=== PATIENT | female | born 1955 | race Two or more races ===

== ENCOUNTER 2020-03-19 19:00 | Inpatient (IN) | payer MEDICARE, OTHER ==
[~2020-03-19] VITALS: Ht 165.1 cm; Wt 147.6 kg
[2020-03-19] MEDS ORDERED: SIMV10TA97 PO (19:21)
[2020-03-19] MEDS ORDERED: HYDR-4174 PO (19:21)
[2020-03-19] MEDS ORDERED: METO50 PO (19:21)
[2020-03-19] MEDS ORDERED: AMLO10TA55 PO (19:21)
[2020-03-19 19:45] LABS: BASOPHILS % (AUTO) 0.7 % (0.0-2.0); HEMATOCRIT 44.8 % (36-46); HEMOGLOBIN 14.4 g/dL (12.0-16.0); LYMPHOCYTES # (AUTO) 2.1 K/uL (1.0-4.8); LYMPHOCYTES % (AUTO) 25.3 % (22.0-44.0); MEAN CORPUSCULAR HEMOGLOBIN 28.2 pg (26.0-34.0); MEAN CORPUSCULAR HGB CONC 32.2 G/dL (31.0-37.0); MEAN CORPUSCULAR VOLUME 88 fL (80-100); MONOCYTES # (AUTO) 0.8 K/uL (0.1-1.0); NEUTROPHILS # (AUTO) 5.2 K/uL (1.8-7.7); PLATELET COUNT (AUTO) 347 K/uL (150-450); RED BLOOD CELL COUNT(AUTO) 5.11 MIL/uL (4.00-5.20); RED CELL DISTRIBUTION WIDTH 14.7 % (11.5-14.5)
[2020-03-19 19:51] LABS: ANION GAP 4 mmol/L (8-16); CALCIUM, TOTAL 8.6 mg/dL (8.8-10.5); CARBON DIOXIDE 34 mmol/L (22-29); CHLORIDE 102 mmol/L (98-107); CREATININE 0.98 mg/dL (0.60-1.30); GLOMERULAR FILTR. RATE CALC 57 mL/min (>60); GLUCOSE,RANDOM 170 mg/dL (70-110); SODIUM SERUM 140 mmol/L (136-145); UREA NITROGEN, BLOOD 14 mg/dL (7-18)
[2020-03-19 19:54] LABS: D-DIMER 1.08 mg/L FEU (0.00-0.50); PROTHROMBIN TIME 10.2 SEC (9.4-11.6)
[2020-03-19 19:59] LABS: LACTIC ACID 1.4 mmol/L (0.4-2.0)
[2020-03-19 20:10] LABS: ALANINE AMINOTRANSFERASE 20 U/L (12-78); ALBUMIN 3.4 g/dL (3.4-5.0); ALKALINE PHOSPHATASE 99 U/L (46-116); ASPARTATE AMINOTRANSFERASE 14 U/L (15-37); BILIRUBIN,TOTAL 0.3 mg/dL (0.1-1.0); CREATINE KINASE, TOTAL ONLY 37 U/L (26-192); FERRITIN 105 ng/mL (8-252); LACTATE DEHYDROGENASE 147 U/L (81-234); PHOSPHORUS 3.4 mg/dL (2.5-4.9); TOTAL PROTEIN, SERUM 7.8 g/dL (6.4-8.2)
[2020-03-19] MEDS ORDERED: MethylPREDNISolone SOD SUCC 125 MG/2 ML VIAL IVP ONE (20:30)
[2020-03-19] MEDS ORDERED: ACETAMINOPHEN 325 MG TABLET PO PRN ×2 (21:15→22:00)
[2020-03-19] MEDS ORDERED: ONDANSETRON HCL 4 MG/2 ML VIAL IVP PRN ×2 (21:15→22:00)
[2020-03-19 21:27] LABS: ERYTHROCYTE SEDIMENTATION RATE 36 MM/HR (0-20)
[2020-03-19] MEDS ORDERED: MORPHINE SULFATE 2 MG/ML SYRINGE IVP PRN (22:00)
[2020-03-19] MEDS ORDERED: BISACODYL 10 MG RECTAL RECTAL SUPPOSITORY PR PRN (22:00)
[2020-03-19] MEDS ORDERED: IPRATROPIUM BROMIDE HFA 17 MCG/PUFF 12.9 GM INHALER IH PRN (22:00)
[2020-03-19] MEDS ORDERED: MAGNESIUM HYDROXIDE SUSPENSION 30 ML UDCUP PO PRN (22:00)
[2020-03-19] MEDS ORDERED: HYDROCODONE/ACETAMINOPHEN 5-325 MG TABLET PO PRN (22:00)
[2020-03-19] MEDS ORDERED: ALBUTEROL SULFATE HFA 90 MCG/PUFF 8 GM INHALER IH PRN (22:00)
[2020-03-19] MEDS ORDERED: ALBUTEROL SULFATE 2.5 MG/0.5 ML NEB SOLUTION NEB SCH (23:00)
[2020-03-19] MEDS ORDERED: IPRATROPIUM BROMIDE 0.5 MG/2.5 ML NEB SOLUTION NEB SCH (23:00)
[2020-03-19] MEDS ORDERED: SODIUM CHLORIDE 0.9% 250 ML IV ONE (23:26)
[2020-03-19 23:29] VITALS: BP 142/74
[2020-03-19] MEDS: HEPARIN SODIUM,PORCINE 5,000 UNITS/ML VIAL SQ SCH (23:48)
[2020-03-19] MEDS: MethylPREDNISolone SOD SUCC 125 MG/2 ML VIAL IVP SCH (23:49)
[2020-03-19] MEDS: AZITHROMYCIN 500 MG/NS 250 ML IV SCH (23:49)
[2020-03-20] MEDS: CefTRIAXone 1 GM/DEXTROSE 50 ML IV SCH (01:47)
[2020-03-20] MEDS: IPRATROPIUM BROMIDE HFA 17 MCG/PUFF 12.9 GM INHALER IH SCH ×5 (02:00→19:49)
[2020-03-20] MEDS: ALBUTEROL SULFATE HFA 90 MCG/PUFF 8 GM INHALER IH SCH ×5 (02:00→19:49)
[2020-03-20 04:57] VITALS: BP 136/74
[2020-03-20] MEDS: MethylPREDNISolone SOD SUCC 125 MG/2 ML VIAL IVP SCH (06:24)
[2020-03-20 07:00] LABS: D-DIMER 1.08 mg/L FEU (0.00-0.50)
[2020-03-20 07:31] LABS: C-REACTIVE PROTEIN QUANT 0.54 mg/dL (0.00-0.30)
[2020-03-20 08:15] VITALS: BP 127/67
[2020-03-20] MEDS: BENZONATATE 100 MG CAPSULE PO SCH ×3 (08:45→20:48)
[2020-03-20] MEDS: HEPARIN SODIUM,PORCINE 5,000 UNITS/ML VIAL SQ SCH (08:46)
[2020-03-20] MEDS: PANTOPRAZOLE SODIUM 40 MG DR TABLET PO SCH (08:46)
[2020-03-20] MEDS: DOCUSATE SODIUM 100 MG CAPSULE PO SCH ×2 (08:46→20:47)
[2020-03-20] MEDS: HydrALAZINE HCL 50 MG TABLET PO SCH ×2 (08:46→21:00)
[2020-03-20] MEDS: METOPROLOL TARTRATE 50 MG TABLET PO SCH ×2 (08:46→21:00)
[2020-03-20] MEDS: GuaiFENesin SR 600 MG ER TABLET PO SCH ×2 (08:46→20:48)
[2020-03-20] MEDS: BUDESONIDE 180 MCG/INH INHALER [120] IH SCH ×2 (08:52→20:51)
[2020-03-20] MEDS ORDERED: HEPARIN SODIUM,PORCINE 5,000 UNITS/ML VIAL IVP PRN ×2 (09:45)
[2020-03-20 10:09] LABS: BASOPHILS % (AUTO) 0.3 % (0.0-2.0); EOSINOPHILS % (AUTO) 0 % (1.0-6.0); HEMATOCRIT 42.1 % (36-46); HEMOGLOBIN 13.6 g/dL (12.0-16.0); LYMPHOCYTES # (AUTO) 0.6 K/uL (1.0-4.8); LYMPHOCYTES % (AUTO) 7.5 % (22.0-44.0); MEAN CORPUSCULAR HEMOGLOBIN 28.6 pg (26.0-34.0); MEAN CORPUSCULAR HGB CONC 32.2 G/dL (31.0-37.0); MEAN CORPUSCULAR VOLUME 89 fL (80-100); MONOCYTES % (AUTO) 0.5 % (2.0-9.0); PLATELET COUNT (AUTO) 316 K/uL (150-450); RED BLOOD CELL COUNT(AUTO) 4.74 MIL/uL (4.00-5.20); RED CELL DISTRIBUTION WIDTH 14.5 % (11.5-14.5)
[2020-03-20 10:11] LABS: NEUTROPHILS % (AUTO) 91.7 % (40.0-70.0)
[2020-03-20 10:22] LABS: PROTHROMBIN TIME 10.5 SEC (9.4-11.6)
[2020-03-20] MEDS: HEPARIN SODIUM 25000 UNITS/D5W 250 ML IV PRN (11:40)
[2020-03-20 16:30] VITALS: BP 122/66
[2020-03-20 20:06] VITALS: BP 119/66
[2020-03-20] MEDS: SIMVASTATIN 10 MG TABLET PO SCH (20:48)
[2020-03-20] MEDS: AmLODIPine BESYLATE 10 MG TABLET PO SCH (20:49)
[2020-03-20 23:01] VITALS: BP 126/66
[2020-03-20] MEDS: ZOLPIDEM TARTRATE 5 MG TABLET PO PRN (23:06)
[2020-03-20] MEDS: AZITHROMYCIN 500 MG/NS 250 ML IV SCH (23:52)
[2020-03-21] MEDS: CefTRIAXone 1 GM/DEXTROSE 50 ML IV SCH (01:13)
[2020-03-21] MEDS: IPRATROPIUM BROMIDE HFA 17 MCG/PUFF 12.9 GM INHALER IH SCH ×4 (02:00→20:51)
[2020-03-21] MEDS: ALBUTEROL SULFATE HFA 90 MCG/PUFF 8 GM INHALER IH SCH ×4 (02:00→20:50)
[2020-03-21] MEDS: HEPARIN SODIUM 25000 UNITS/D5W 250 ML IV PRN (05:06)
[2020-03-21 05:38] VITALS: BP 112/59
[2020-03-21 08:02] LABS: BASOPHILS % (AUTO) 0.3 % (0.0-2.0); EOSINOPHILS % (AUTO) 0 % (1.0-6.0); HEMATOCRIT 39.4 % (36-46); HEMOGLOBIN 12.9 g/dL (12.0-16.0); LYMPHOCYTES # (AUTO) 1.1 K/uL (1.0-4.8); LYMPHOCYTES % (AUTO) 7.9 % (22.0-44.0); MEAN CORPUSCULAR HEMOGLOBIN 28.9 pg (26.0-34.0); MEAN CORPUSCULAR HGB CONC 32.8 G/dL (31.0-37.0); MEAN CORPUSCULAR VOLUME 88 fL (80-100); MONOCYTES % (AUTO) 7.2 % (2.0-9.0); NEUTROPHILS # (AUTO) 11.6 K/uL (1.8-7.7); NEUTROPHILS % (AUTO) 84.6 % (40.0-70.0); PLATELET COUNT (AUTO) 327 K/uL (150-450); RED BLOOD CELL COUNT(AUTO) 4.47 MIL/uL (4.00-5.20); RED CELL DISTRIBUTION WIDTH 14.7 % (11.5-14.5)
[2020-03-21 08:05] VITALS: BP 127/66
[2020-03-21 08:23] LABS: D-DIMER 0.66 mg/L FEU (0.00-0.50)
[2020-03-21] MEDS: PANTOPRAZOLE SODIUM 40 MG DR TABLET PO SCH (08:26)
[2020-03-21] MEDS: BENZONATATE 100 MG CAPSULE PO SCH ×3 (08:26→20:51)
[2020-03-21] MEDS: DOCUSATE SODIUM 100 MG CAPSULE PO SCH ×2 (08:26→20:51)
[2020-03-21] MEDS: GuaiFENesin SR 600 MG ER TABLET PO SCH ×2 (08:26→20:51)
[2020-03-21] MEDS: METOPROLOL TARTRATE 50 MG TABLET PO SCH ×2 (08:26→21:00)
[2020-03-21] MEDS: HydrALAZINE HCL 50 MG TABLET PO SCH ×2 (08:26→21:00)
[2020-03-21] MEDS: DEXAMETHASONE SOD PHOS 4 MG/ML VIAL IVP SCH (08:28)
[2020-03-21] MEDS: BUDESONIDE 180 MCG/INH INHALER [120] IH SCH (08:30)
[2020-03-21 08:31] LABS: C-REACTIVE PROTEIN QUANT 0.26 mg/dL (0.00-0.30)
[2020-03-21 11:11] VITALS: BP 144/52
[2020-03-21 15:29] VITALS: BP 127/58
[2020-03-21 20:05] VITALS: BP 116/57
[2020-03-21] MEDS: SIMVASTATIN 10 MG TABLET PO SCH (20:51)
[2020-03-21] MEDS: AmLODIPine BESYLATE 10 MG TABLET PO SCH (20:51)
[2020-03-21] MEDS: ZOLPIDEM TARTRATE 5 MG TABLET PO PRN (22:27)
[2020-03-21] MEDS: AZITHROMYCIN 500 MG/NS 250 ML IV SCH (23:26)
[2020-03-22] VITALS (7 sets, daily range): BP systolic 107–139; BP diastolic 53–76
[2020-03-22] MEDS: HEPARIN SODIUM 25000 UNITS/D5W 250 ML IV PRN (00:18)
[2020-03-22] MEDS: CefTRIAXone 1 GM/DEXTROSE 50 ML IV SCH ×2 (02:33→23:21)
[2020-03-22 06:45] LABS: D-DIMER 0.37 mg/L FEU (0.00-0.50)
[2020-03-22 07:05] LABS: C-REACTIVE PROTEIN QUANT 0.17 mg/dL (0.00-0.30)
[2020-03-22] MEDS: ALBUTEROL SULFATE HFA 90 MCG/PUFF 8 GM INHALER IH SCH ×3 (08:00→20:23)
[2020-03-22] MEDS: IPRATROPIUM BROMIDE HFA 17 MCG/PUFF 12.9 GM INHALER IH SCH ×3 (08:00→20:23)
[2020-03-22] MEDS: METOPROLOL TARTRATE 50 MG TABLET PO SCH (09:00)
[2020-03-22] MEDS: PANTOPRAZOLE SODIUM 40 MG DR TABLET PO SCH (09:00)
[2020-03-22] MEDS: BUDESONIDE 180 MCG/INH INHALER [120] IH SCH (09:00)
[2020-03-22] MEDS: BENZONATATE 100 MG CAPSULE PO SCH ×3 (09:01→20:22)
[2020-03-22] MEDS: GuaiFENesin SR 600 MG ER TABLET PO SCH ×2 (09:01→20:21)
[2020-03-22] MEDS: HydrALAZINE HCL 50 MG TABLET PO SCH ×2 (09:01→20:21)
[2020-03-22] MEDS: DOCUSATE SODIUM 100 MG CAPSULE PO SCH ×2 (09:01→20:21)
[2020-03-22] MEDS: DEXAMETHASONE SOD PHOS 4 MG/ML VIAL IVP SCH (09:01)
[2020-03-22] MEDS: HEPARIN SODIUM,PORCINE 5,000 UNITS/ML VIAL SQ SCH ×2 (17:04→23:27)
[2020-03-22] MEDS: SIMVASTATIN 10 MG TABLET PO SCH (20:21)
[2020-03-22] MEDS: METOPROLOL TARTRATE 25 MG TABLET PO SCH (20:21)
[2020-03-22] MEDS: AmLODIPine BESYLATE 10 MG TABLET PO SCH (20:21)
[2020-03-22] MEDS: ZOLPIDEM TARTRATE 5 MG TABLET PO PRN (22:23)
[2020-03-22] MEDS: AZITHROMYCIN 500 MG/NS 250 ML IV SCH (22:23)
[2020-03-23] MEDS: IPRATROPIUM BROMIDE HFA 17 MCG/PUFF 12.9 GM INHALER IH SCH ×4 (02:00→20:33)
[2020-03-23] MEDS: ALBUTEROL SULFATE HFA 90 MCG/PUFF 8 GM INHALER IH SCH ×4 (02:00→20:32)
[2020-03-23 05:14] VITALS: BP 109/51
[2020-03-23 06:54] LABS: C-REACTIVE PROTEIN QUANT 0.08 mg/dL (0.00-0.30)
[2020-03-23] MEDS: BUDESONIDE 180 MCG/INH INHALER [120] IH SCH ×2 (07:36→20:32)
[2020-03-23] MEDS: DEXAMETHASONE SOD PHOS 4 MG/ML VIAL IVP SCH (08:13)
[2020-03-23] MEDS: HEPARIN SODIUM,PORCINE 5,000 UNITS/ML VIAL SQ SCH ×3 (08:13→23:39)
[2020-03-23] MEDS: BENZONATATE 100 MG CAPSULE PO SCH ×3 (08:14→20:33)
[2020-03-23] MEDS: GuaiFENesin SR 600 MG ER TABLET PO SCH ×2 (08:14→20:34)
[2020-03-23] MEDS: PANTOPRAZOLE SODIUM 40 MG DR TABLET PO SCH (08:14)
[2020-03-23] MEDS: DOCUSATE SODIUM 100 MG CAPSULE PO SCH ×2 (08:14→20:36)
[2020-03-23] MEDS: METOPROLOL TARTRATE 25 MG TABLET PO SCH ×3 (08:25→20:36)
[2020-03-23] MEDS: HydrALAZINE HCL 50 MG TABLET PO SCH ×2 (08:25→20:34)
[2020-03-23 08:26] VITALS: BP 138/77
[2020-03-23 12:13] VITALS: BP 130/86
[2020-03-23 16:00] VITALS: BP 120/66
[2020-03-23] MEDS: ASCORBIC ACID 500 MG TABLET PO SCH (20:34)
[2020-03-23] MEDS: SIMVASTATIN 10 MG TABLET PO SCH (20:34)
[2020-03-23] MEDS: AmLODIPine BESYLATE 10 MG TABLET PO SCH (20:34)
[2020-03-23 20:57] VITALS: BP 132/68
[2020-03-23] MEDS: AZITHROMYCIN 500 MG/NS 250 ML IV SCH (23:38)
[2020-03-23] MEDS: ZOLPIDEM TARTRATE 5 MG TABLET PO PRN (23:38)
[2020-03-24] MEDS ORDERED: SODIUM CHLORIDE 0.9% 250 ML IV ONE (00:21)
[2020-03-24 00:23] VITALS: BP 153/67
[2020-03-24] MEDS: CefTRIAXone 1 GM/DEXTROSE 50 ML IV SCH (01:18)
[2020-03-24] MEDS: IPRATROPIUM BROMIDE HFA 17 MCG/PUFF 12.9 GM INHALER IH SCH ×4 (02:00→20:11)
[2020-03-24] MEDS: ALBUTEROL SULFATE HFA 90 MCG/PUFF 8 GM INHALER IH SCH ×4 (02:00→20:11)
[2020-03-24 04:05] VITALS: BP 120/70
[2020-03-24 07:29] LABS: FERRITIN 104 ng/mL (8-252); LACTATE DEHYDROGENASE 165 U/L (81-234)
[2020-03-24 07:31] LABS: C-REACTIVE PROTEIN QUANT < 0.05 mg/dL (0.00-0.30)
[2020-03-24 08:28] VITALS: BP 101/60
[2020-03-24] MEDS: BENZONATATE 100 MG CAPSULE PO SCH ×3 (08:29→20:12)
[2020-03-24] MEDS: DOCUSATE SODIUM 100 MG CAPSULE PO SCH ×2 (08:29→20:12)
[2020-03-24] MEDS: ZINC SULFATE 220 MG CAPSULE PO SCH (08:30)
[2020-03-24] MEDS: MULTIVITAMINS, THERAPEUTIC TABLET PO SCH (08:30)
[2020-03-24] MEDS: PANTOPRAZOLE SODIUM 40 MG DR TABLET PO SCH (08:30)
[2020-03-24] MEDS: ASCORBIC ACID 500 MG TABLET PO SCH ×2 (08:30→20:12)
[2020-03-24] MEDS: GuaiFENesin SR 600 MG ER TABLET PO SCH ×2 (08:31→20:12)
[2020-03-24] MEDS: DEXAMETHASONE SOD PHOS 4 MG/ML VIAL IVP SCH (08:32)
[2020-03-24] MEDS: METOPROLOL TARTRATE 25 MG TABLET PO SCH ×2 (08:32→20:12)
[2020-03-24] MEDS: HydrALAZINE HCL 50 MG TABLET PO SCH ×2 (08:32→20:12)
[2020-03-24] MEDS: HEPARIN SODIUM,PORCINE 5,000 UNITS/ML VIAL SQ SCH ×2 (08:33→16:59)
[2020-03-24] MEDS: BUDESONIDE 180 MCG/INH INHALER [120] IH SCH ×2 (08:38→20:11)
[2020-03-24] MEDS: MICONAZOLE NITRATE 2% 142 GM CREAM [BAZA] TP SCH (08:46)
[2020-03-24 16:00] VITALS: BP 132/63
[2020-03-24] MEDS: AmLODIPine BESYLATE 10 MG TABLET PO SCH (20:12)
[2020-03-24] MEDS: SIMVASTATIN 10 MG TABLET PO SCH (20:12)
[2020-03-24 20:18] VITALS: BP 139/69
[2020-03-24] MEDS: ZOLPIDEM TARTRATE 5 MG TABLET PO PRN (20:56)
[2020-03-24] MEDS: AZITHROMYCIN 500 MG/NS 250 ML IV SCH (23:24)
[2020-03-25 00:21] VITALS: BP 120/64
[2020-03-25] MEDS: CefTRIAXone 1 GM/DEXTROSE 50 ML IV SCH ×2 (00:37→23:46)
[2020-03-25] MEDS: HEPARIN SODIUM,PORCINE 5,000 UNITS/ML VIAL SQ SCH ×4 (00:37→23:46)
[2020-03-25 01:07] LABS: INFLUENZA TYPE A NEGATIVE FOR TYPE A (NEGATIVE); INFLUENZA TYPE B NEGATIVE FOR TYPE B (NEGATIVE)
[2020-03-25] MEDS: IPRATROPIUM BROMIDE HFA 17 MCG/PUFF 12.9 GM INHALER IH SCH ×4 (02:50→20:46)
[2020-03-25] MEDS: ALBUTEROL SULFATE HFA 90 MCG/PUFF 8 GM INHALER IH SCH ×4 (02:51→20:51)
[2020-03-25 04:26] VITALS: BP 120/60
[2020-03-25 06:27] LABS: BASOPHILS % (AUTO) 0.2 % (0.0-2.0); EOSINOPHILS % (AUTO) 0.1 % (1.0-6.0); HEMATOCRIT 39.7 % (36-46); LYMPHOCYTES # (AUTO) 1.1 K/uL (1.0-4.8); LYMPHOCYTES % (AUTO) 14.9 % (22.0-44.0); MEAN CORPUSCULAR HGB CONC 32.9 G/dL (31.0-37.0); MEAN CORPUSCULAR VOLUME 88 fL (80-100); MONOCYTES # (AUTO) 0.6 K/uL (0.1-1.0); MONOCYTES % (AUTO) 8.3 % (2.0-9.0); NEUTROPHILS # (AUTO) 5.8 K/uL (1.8-7.7); NEUTROPHILS % (AUTO) 76.5 % (40.0-70.0); PLATELET COUNT (AUTO) 285 K/uL (150-450); RED CELL DISTRIBUTION WIDTH 14.4 % (11.5-14.5)
[2020-03-25 07:04] LABS: ALANINE AMINOTRANSFERASE 28 U/L (12-78); ALBUMIN 3.1 g/dL (3.4-5.0); ALKALINE PHOSPHATASE 59 U/L (46-116); ANION GAP -4 mmol/L (8-16); ASPARTATE AMINOTRANSFERASE 20 U/L (15-37); BILIRUBIN,TOTAL 0.2 mg/dL (0.1-1.0); CALCIUM, TOTAL 8.7 mg/dL (8.8-10.5); CARBON DIOXIDE 35 mmol/L (22-29); CHLORIDE 98 mmol/L (98-107); CREATININE 0.71 mg/dL (0.60-1.30); GLOMERULAR FILTR. RATE CALC > 60 mL/min (>60); GLUCOSE,RANDOM 116 mg/dL (70-110); POTASSIUM 3.5 mmol/L (3.5-5.1); SODIUM SERUM 129 mmol/L (136-145); TOTAL PROTEIN, SERUM 7.1 g/dL (6.4-8.2); UREA NITROGEN, BLOOD 18 mg/dL (7-18)
[2020-03-25] MEDS: BENZONATATE 100 MG CAPSULE PO SCH ×3 (08:14→20:45)
[2020-03-25] MEDS: ZINC SULFATE 220 MG CAPSULE PO SCH (08:15)
[2020-03-25] MEDS: MULTIVITAMINS, THERAPEUTIC TABLET PO SCH (08:15)
[2020-03-25] MEDS: HydrALAZINE HCL 50 MG TABLET PO SCH ×2 (08:15→20:47)
[2020-03-25] MEDS: PANTOPRAZOLE SODIUM 40 MG DR TABLET PO SCH (08:15)
[2020-03-25] MEDS: GuaiFENesin SR 600 MG ER TABLET PO SCH ×2 (08:15→20:47)
[2020-03-25] MEDS: ASCORBIC ACID 500 MG TABLET PO SCH ×2 (08:15→20:47)
[2020-03-25] MEDS: DOCUSATE SODIUM 100 MG CAPSULE PO SCH ×2 (08:15→20:47)
[2020-03-25] MEDS: DEXAMETHASONE SOD PHOS 4 MG/ML VIAL IVP SCH (08:16)
[2020-03-25] MEDS: BUDESONIDE 180 MCG/INH INHALER [120] IH SCH ×2 (08:28→20:51)
[2020-03-25 08:46] VITALS: BP 111/57
[2020-03-25] MEDS: METOPROLOL TARTRATE 25 MG TABLET PO SCH ×2 (08:56→20:47)
[2020-03-25] MEDS: MICONAZOLE NITRATE 2% 142 GM CREAM [BAZA] TP SCH ×2 (09:00→20:51)
[2020-03-25 11:20] VITALS: BP 119/59
[2020-03-25 15:54] VITALS: BP 125/60
[2020-03-25 20:00] VITALS: BP 121/76
[2020-03-25] MEDS: AmLODIPine BESYLATE 10 MG TABLET PO SCH (20:47)
[2020-03-25] MEDS: SIMVASTATIN 10 MG TABLET PO SCH (20:47)
[2020-03-25] MEDS: ZOLPIDEM TARTRATE 5 MG TABLET PO PRN (21:57)
[2020-03-25] MEDS: AZITHROMYCIN 500 MG/NS 250 ML IV SCH (22:04)
[2020-03-26 00:10] VITALS: BP 106/79
[2020-03-26] MEDS: ALBUTEROL SULFATE HFA 90 MCG/PUFF 8 GM INHALER IH SCH ×4 (02:00→21:37)
[2020-03-26] MEDS: IPRATROPIUM BROMIDE HFA 17 MCG/PUFF 12.9 GM INHALER IH SCH ×4 (02:00→21:37)
[2020-03-26 03:50] VITALS: BP 112/61
[2020-03-26 07:11] LABS: BASOPHILS % (AUTO) 0.6 % (0.0-2.0); EOSINOPHILS % (AUTO) 0.2 % (1.0-6.0); HEMATOCRIT 40.8 % (36-46); HEMOGLOBIN 13.5 g/dL (12.0-16.0); LYMPHOCYTES # (AUTO) 1.1 K/uL (1.0-4.8); LYMPHOCYTES % (AUTO) 12.6 % (22.0-44.0); MEAN CORPUSCULAR HEMOGLOBIN 29.1 pg (26.0-34.0); MEAN CORPUSCULAR VOLUME 88 fL (80-100); MONOCYTES # (AUTO) 0.7 K/uL (0.1-1.0); MONOCYTES % (AUTO) 7.9 % (2.0-9.0); NEUTROPHILS # (AUTO) 6.9 K/uL (1.8-7.7); NEUTROPHILS % (AUTO) 78.7 % (40.0-70.0); PLATELET COUNT (AUTO) 280 K/uL (150-450); RED BLOOD CELL COUNT(AUTO) 4.62 MIL/uL (4.00-5.20); RED CELL DISTRIBUTION WIDTH 14.6 % (11.5-14.5)
[2020-03-26 08:00] VITALS: BP 123/57
[2020-03-26] MEDS: BUDESONIDE 180 MCG/INH INHALER [120] IH SCH ×2 (08:16→21:37)
[2020-03-26 08:22] LABS: ANION GAP 4 mmol/L (8-16); CARBON DIOXIDE 35 mmol/L (22-29); CHLORIDE 101 mmol/L (98-107); CREATININE 0.77 mg/dL (0.60-1.30); FERRITIN 110 ng/mL (8-252); GLOMERULAR FILTR. RATE CALC > 60 mL/min (>60); GLUCOSE,RANDOM 108 mg/dL (70-110); POTASSIUM 3.7 mmol/L (3.5-5.1); SODIUM SERUM 140 mmol/L (136-145); UREA NITROGEN, BLOOD 19 mg/dL (7-18)
[2020-03-26] MEDS: HydrALAZINE HCL 50 MG TABLET PO SCH ×2 (08:24→21:00)
[2020-03-26] MEDS: HEPARIN SODIUM,PORCINE 5,000 UNITS/ML VIAL SQ SCH ×2 (08:24→15:13)
[2020-03-26] MEDS: DEXAMETHASONE SOD PHOS 4 MG/ML VIAL IVP SCH (08:24)
[2020-03-26 08:25] LABS: C-REACTIVE PROTEIN QUANT < 0.05 mg/dL (0.00-0.30)
[2020-03-26] MEDS: PANTOPRAZOLE SODIUM 40 MG DR TABLET PO SCH (08:25)
[2020-03-26] MEDS: ZINC SULFATE 220 MG CAPSULE PO SCH (08:25)
[2020-03-26] MEDS: BENZONATATE 100 MG CAPSULE PO SCH ×3 (08:25→21:45)
[2020-03-26] MEDS: GuaiFENesin SR 600 MG ER TABLET PO SCH ×2 (08:25→21:50)
[2020-03-26] MEDS: ASCORBIC ACID 500 MG TABLET PO SCH ×2 (08:25→21:50)
[2020-03-26] MEDS: MULTIVITAMINS, THERAPEUTIC TABLET PO SCH (08:25)
[2020-03-26] MEDS: DOCUSATE SODIUM 100 MG CAPSULE PO SCH ×2 (08:25→21:50)
[2020-03-26] MEDS: METOPROLOL TARTRATE 25 MG TABLET PO SCH ×2 (08:35→21:00)
[2020-03-26 09:22] LABS: ERYTHROCYTE SEDIMENTATION RATE 20 MM/HR (0-20)
[2020-03-26 12:00] VITALS: BP 113/67
[2020-03-26 16:00] VITALS: BP 125/58
[2020-03-26 20:45] VITALS: BP 123/71
[2020-03-26] MEDS: ZOLPIDEM TARTRATE 5 MG TABLET PO PRN (21:45)
[2020-03-26] MEDS: AmLODIPine BESYLATE 10 MG TABLET PO SCH (21:45)
[2020-03-26] MEDS: SIMVASTATIN 10 MG TABLET PO SCH (21:45)
[2020-03-26] MEDS: AZITHROMYCIN 500 MG/NS 250 ML IV SCH (23:34)
[2020-03-26] MEDS ORDERED: SODIUM CHLORIDE 0.9% 100 ML ONE (23:37)
[2020-03-27] MEDS: HEPARIN SODIUM,PORCINE 5,000 UNITS/ML VIAL SQ SCH ×4 (00:57→23:26)
[2020-03-27] MEDS: CefTRIAXone 1 GM/DEXTROSE 50 ML IV SCH ×2 (00:58→23:26)
[2020-03-27 01:10] VITALS: BP 121/70
[2020-03-27] MEDS: IPRATROPIUM BROMIDE HFA 17 MCG/PUFF 12.9 GM INHALER IH SCH ×4 (02:00→14:06)
[2020-03-27] MEDS: ALBUTEROL SULFATE HFA 90 MCG/PUFF 8 GM INHALER IH SCH ×4 (02:00→14:06)
[2020-03-27 04:45] VITALS: BP 120/65
[2020-03-27] MEDS: PANTOPRAZOLE SODIUM 40 MG DR TABLET PO SCH (08:19)
[2020-03-27] MEDS: ZINC SULFATE 220 MG CAPSULE PO SCH (08:20)
[2020-03-27] MEDS: DOCUSATE SODIUM 100 MG CAPSULE PO SCH ×2 (08:20→21:19)
[2020-03-27] MEDS: GuaiFENesin SR 600 MG ER TABLET PO SCH ×2 (08:20→21:20)
[2020-03-27] MEDS: METOPROLOL TARTRATE 25 MG TABLET PO SCH ×2 (08:21→21:20)
[2020-03-27] MEDS: BENZONATATE 100 MG CAPSULE PO SCH ×3 (08:21→21:20)
[2020-03-27] MEDS: MULTIVITAMINS, THERAPEUTIC TABLET PO SCH (08:21)
[2020-03-27] MEDS: ASCORBIC ACID 500 MG TABLET PO SCH ×2 (08:21→21:20)
[2020-03-27] MEDS: DEXAMETHASONE SOD PHOS 4 MG/ML VIAL IVP SCH (08:22)
[2020-03-27] MEDS: HydrALAZINE HCL 50 MG TABLET PO SCH ×2 (08:31→21:20)
[2020-03-27 08:37] LABS: BASOPHILS % (AUTO) 0.3 % (0.0-2.0); EOSINOPHILS % (AUTO) 0.3 % (1.0-6.0); HEMATOCRIT 40.3 % (36-46); HEMOGLOBIN 13.5 g/dL (12.0-16.0); LYMPHOCYTES % (AUTO) 12.4 % (22.0-44.0); MEAN CORPUSCULAR HEMOGLOBIN 29.5 pg (26.0-34.0); MEAN CORPUSCULAR HGB CONC 33.5 G/dL (31.0-37.0); MEAN CORPUSCULAR VOLUME 88 fL (80-100); MONOCYTES # (AUTO) 0.7 K/uL (0.1-1.0); MONOCYTES % (AUTO) 8.6 % (2.0-9.0); NEUTROPHILS # (AUTO) 6.6 K/uL (1.8-7.7); NEUTROPHILS % (AUTO) 78.4 % (40.0-70.0); PLATELET COUNT (AUTO) 259 K/uL (150-450); RED BLOOD CELL COUNT(AUTO) 4.58 MIL/uL (4.00-5.20); RED CELL DISTRIBUTION WIDTH 14.5 % (11.5-14.5)
[2020-03-27] MEDS: BUDESONIDE 180 MCG/INH INHALER [120] IH SCH ×2 (08:39→09:00)
[2020-03-27 08:40] VITALS: BP 139/72
[2020-03-27] MEDS: MICONAZOLE NITRATE 2% 142 GM CREAM [BAZA] TP SCH (08:40)
[2020-03-27 09:37] LABS: ALANINE AMINOTRANSFERASE 32 U/L (12-78); ALBUMIN 3.3 g/dL (3.4-5.0); ALKALINE PHOSPHATASE 63 U/L (46-116); ANION GAP 4 mmol/L (8-16); ASPARTATE AMINOTRANSFERASE 19 U/L (15-37); BILIRUBIN,TOTAL 0.2 mg/dL (0.1-1.0); CALCIUM, TOTAL 8.9 mg/dL (8.8-10.5); CARBON DIOXIDE 34 mmol/L (22-29); CHLORIDE 101 mmol/L (98-107); CREATININE 0.74 mg/dL (0.60-1.30); GLOMERULAR FILTR. RATE CALC > 60 mL/min (>60); GLUCOSE,RANDOM 102 mg/dL (70-110); POTASSIUM 3.6 mmol/L (3.5-5.1); SODIUM SERUM 139 mmol/L (136-145); UREA NITROGEN, BLOOD 19 mg/dL (7-18)
[2020-03-27 12:15] VITALS: BP 123/64
[2020-03-27 16:30] VITALS: BP 124/71
[2020-03-27 19:45] VITALS: BP 134/65
[2020-03-27] MEDS: SIMVASTATIN 10 MG TABLET PO SCH (21:19)
[2020-03-27] MEDS: ZOLPIDEM TARTRATE 5 MG TABLET PO PRN (21:20)
[2020-03-27] MEDS: AmLODIPine BESYLATE 10 MG TABLET PO SCH (21:20)
[2020-03-27] MEDS: AZITHROMYCIN 500 MG/NS 250 ML IV SCH (22:24)
[2020-03-28] VITALS (7 sets, daily range): BP systolic 101–127; BP diastolic 36–64
[2020-03-28 07:50] LABS: BASOPHILS % (AUTO) 0.5 % (0.0-2.0); EOSINOPHILS % (AUTO) 0.6 % (1.0-6.0); HEMATOCRIT 41.1 % (36-46); HEMOGLOBIN 13.5 g/dL (12.0-16.0); LYMPHOCYTES # (AUTO) 1.2 K/uL (1.0-4.8); LYMPHOCYTES % (AUTO) 14.2 % (22.0-44.0); MEAN CORPUSCULAR HEMOGLOBIN 29.2 pg (26.0-34.0); MEAN CORPUSCULAR HGB CONC 32.8 G/dL (31.0-37.0); MEAN CORPUSCULAR VOLUME 89 fL (80-100); MONOCYTES # (AUTO) 0.8 K/uL (0.1-1.0); MONOCYTES % (AUTO) 9.8 % (2.0-9.0); NEUTROPHILS # (AUTO) 6.4 K/uL (1.8-7.7); NEUTROPHILS % (AUTO) 74.9 % (40.0-70.0); PLATELET COUNT (AUTO) 261 K/uL (150-450); RED BLOOD CELL COUNT(AUTO) 4.63 MIL/uL (4.00-5.20); RED CELL DISTRIBUTION WIDTH 14.6 % (11.5-14.5)
[2020-03-28 07:54] LABS: CALCIUM, TOTAL 8.6 mg/dL (8.8-10.5); CREATININE 0.98 mg/dL (0.60-1.30); POTASSIUM 3.8 mmol/L (3.5-5.1)
[2020-03-28] MEDS: ALBUTEROL SULFATE HFA 90 MCG/PUFF 8 GM INHALER IH SCH ×3 (08:00→21:12)
[2020-03-28] MEDS: IPRATROPIUM BROMIDE HFA 17 MCG/PUFF 12.9 GM INHALER IH SCH ×3 (08:00→21:11)
[2020-03-28] MEDS: ASCORBIC ACID 500 MG TABLET PO SCH ×2 (09:00→21:02)
[2020-03-28] MEDS: METOPROLOL TARTRATE 25 MG TABLET PO SCH ×2 (09:00→21:00)
[2020-03-28] MEDS: HEPARIN SODIUM,PORCINE 5,000 UNITS/ML VIAL SQ SCH ×3 (09:00→23:14)
[2020-03-28] MEDS: ZINC SULFATE 220 MG CAPSULE PO SCH (09:00)
[2020-03-28] MEDS: HydrALAZINE HCL 50 MG TABLET PO SCH ×2 (09:00→21:01)
[2020-03-28] MEDS: MULTIVITAMINS, THERAPEUTIC TABLET PO SCH (09:01)
[2020-03-28] MEDS: PANTOPRAZOLE SODIUM 40 MG DR TABLET PO SCH (09:01)
[2020-03-28] MEDS: GuaiFENesin SR 600 MG ER TABLET PO SCH ×2 (09:01→21:02)
[2020-03-28] MEDS: BENZONATATE 100 MG CAPSULE PO SCH ×3 (09:01→21:02)
[2020-03-28] MEDS: DOCUSATE SODIUM 100 MG CAPSULE PO SCH ×2 (09:02→21:02)
[2020-03-28] MEDS: DEXAMETHASONE SOD PHOS 4 MG/ML VIAL IVP SCH (09:02)
[2020-03-28] MEDS: BUDESONIDE 180 MCG/INH INHALER [120] IH SCH ×2 (10:25→21:12)
[2020-03-28] MEDS: MICONAZOLE NITRATE 2% 142 GM CREAM [BAZA] TP SCH (10:25)
[2020-03-28] MEDS: AmLODIPine BESYLATE 10 MG TABLET PO SCH (21:00)
[2020-03-28] MEDS: SIMVASTATIN 10 MG TABLET PO SCH (21:03)
[2020-03-28] MEDS: AZITHROMYCIN 500 MG/NS 250 ML IV SCH (23:16)
[2020-03-29] MEDS: CefTRIAXone 1 GM/DEXTROSE 50 ML IV SCH ×2 (00:23→23:22)
[2020-03-29] MEDS: IPRATROPIUM BROMIDE HFA 17 MCG/PUFF 12.9 GM INHALER IH SCH ×4 (01:18→19:33)
[2020-03-29] MEDS: ALBUTEROL SULFATE HFA 90 MCG/PUFF 8 GM INHALER IH SCH ×4 (01:19→19:34)
[2020-03-29 04:01] VITALS: BP 110/69
[2020-03-29 06:00] LABS: BASOPHILS % (AUTO) 0.3 % (0.0-2.0); EOSINOPHILS % (AUTO) 0.2 % (1.0-6.0); HEMATOCRIT 40.4 % (36-46); HEMOGLOBIN 13.3 g/dL (12.0-16.0); LYMPHOCYTES # (AUTO) 0.9 K/uL (1.0-4.8); LYMPHOCYTES % (AUTO) 13.3 % (22.0-44.0); MEAN CORPUSCULAR HEMOGLOBIN 29.2 pg (26.0-34.0); MEAN CORPUSCULAR HGB CONC 32.9 G/dL (31.0-37.0); MEAN CORPUSCULAR VOLUME 89 fL (80-100); MONOCYTES # (AUTO) 0.7 K/uL (0.1-1.0); MONOCYTES % (AUTO) 9.7 % (2.0-9.0); NEUTROPHILS # (AUTO) 5.3 K/uL (1.8-7.7); NEUTROPHILS % (AUTO) 76.5 % (40.0-70.0); PLATELET COUNT (AUTO) 242 K/uL (150-450); RED BLOOD CELL COUNT(AUTO) 4.56 MIL/uL (4.00-5.20); RED CELL DISTRIBUTION WIDTH 14.6 % (11.5-14.5)
[2020-03-29 06:35] LABS: CALCIUM, TOTAL 8.8 mg/dL (8.8-10.5); CREATININE 1.02 mg/dL (0.60-1.30); POTASSIUM 3.7 mmol/L (3.5-5.1)
[2020-03-29 08:05] VITALS: BP 139/71
[2020-03-29] MEDS: METOPROLOL TARTRATE 25 MG TABLET PO SCH ×2 (09:00→20:12)
[2020-03-29] MEDS: GuaiFENesin SR 600 MG ER TABLET PO SCH ×2 (10:01→20:18)
[2020-03-29] MEDS: ASCORBIC ACID 500 MG TABLET PO SCH ×2 (10:01→20:17)
[2020-03-29] MEDS: BENZONATATE 100 MG CAPSULE PO SCH ×3 (10:01→20:17)
[2020-03-29] MEDS: PANTOPRAZOLE SODIUM 40 MG DR TABLET PO SCH (10:01)
[2020-03-29] MEDS: MULTIVITAMINS, THERAPEUTIC TABLET PO SCH (10:02)
[2020-03-29] MEDS: HydrALAZINE HCL 50 MG TABLET PO SCH ×2 (10:02→21:00)
[2020-03-29] MEDS: DOCUSATE SODIUM 100 MG CAPSULE PO SCH ×2 (10:02→20:17)
[2020-03-29] MEDS: DEXAMETHASONE SOD PHOS 4 MG/ML VIAL IVP SCH (10:02)
[2020-03-29] MEDS: HEPARIN SODIUM,PORCINE 5,000 UNITS/ML VIAL SQ SCH ×3 (10:02→23:25)
[2020-03-29] MEDS: ZINC SULFATE 220 MG CAPSULE PO SCH (10:02)
[2020-03-29] MEDS: BUDESONIDE 180 MCG/INH INHALER [120] IH SCH ×2 (10:05→20:17)
[2020-03-29] MEDS: MICONAZOLE NITRATE 2% 142 GM CREAM [BAZA] TP SCH (10:07)
[2020-03-29 12:00] VITALS: BP 114/45
[2020-03-29 16:00] VITALS: BP 125/68
[2020-03-29 16:06] VITALS: BP 134/74
[2020-03-29] MEDS: SIMVASTATIN 10 MG TABLET PO SCH (20:18)
[2020-03-29 20:20] VITALS: BP 111/62
[2020-03-29] MEDS: AmLODIPine BESYLATE 10 MG TABLET PO SCH (21:00)
[2020-03-29] MEDS: AZITHROMYCIN 500 MG/NS 250 ML IV SCH (23:22)
[2020-03-30] VITALS (7 sets, daily range): BP systolic 100–124; BP diastolic 55–69
[2020-03-30] MEDS: ALBUTEROL SULFATE HFA 90 MCG/PUFF 8 GM INHALER IH SCH ×3 (00:56→21:39)
[2020-03-30] MEDS: IPRATROPIUM BROMIDE HFA 17 MCG/PUFF 12.9 GM INHALER IH SCH ×4 (00:57→21:38)
[2020-03-30 06:54] LABS: BASOPHILS % (AUTO) 0.7 % (0.0-2.0); EOSINOPHILS % (AUTO) 0.4 % (1.0-6.0); HEMATOCRIT 40.4 % (36-46); HEMOGLOBIN 12.9 g/dL (12.0-16.0); LYMPHOCYTES # (AUTO) 1.2 K/uL (1.0-4.8); MEAN CORPUSCULAR HEMOGLOBIN 28.5 pg (26.0-34.0); MEAN CORPUSCULAR VOLUME 89 fL (80-100); MONOCYTES # (AUTO) 0.8 K/uL (0.1-1.0); MONOCYTES % (AUTO) 9.5 % (2.0-9.0); NEUTROPHILS # (AUTO) 5.9 K/uL (1.8-7.7); NEUTROPHILS % (AUTO) 74.4 % (40.0-70.0); PLATELET COUNT (AUTO) 223 K/uL (150-450); RED BLOOD CELL COUNT(AUTO) 4.54 MIL/uL (4.00-5.20); RED CELL DISTRIBUTION WIDTH 14.9 % (11.5-14.5)
[2020-03-30 07:09] LABS: CALCIUM, TOTAL 8.9 mg/dL (8.8-10.5); CREATININE 1.02 mg/dL (0.60-1.30); POTASSIUM 3.9 mmol/L (3.5-5.1)
[2020-03-30] MEDS: ASCORBIC ACID 500 MG TABLET PO SCH ×2 (08:45→21:42)
[2020-03-30] MEDS: DOCUSATE SODIUM 100 MG CAPSULE PO SCH ×2 (08:45→21:40)
[2020-03-30] MEDS: PANTOPRAZOLE SODIUM 40 MG DR TABLET PO SCH (08:46)
[2020-03-30] MEDS: ZINC SULFATE 220 MG CAPSULE PO SCH (08:46)
[2020-03-30] MEDS: GuaiFENesin SR 600 MG ER TABLET PO SCH ×2 (08:46→21:41)
[2020-03-30] MEDS: BENZONATATE 100 MG CAPSULE PO SCH ×3 (08:46→21:42)
[2020-03-30] MEDS: MULTIVITAMINS, THERAPEUTIC TABLET PO SCH (08:46)
[2020-03-30] MEDS: MICONAZOLE NITRATE 2% 142 GM CREAM [BAZA] TP SCH (08:46)
[2020-03-30] MEDS: METOPROLOL TARTRATE 25 MG TABLET PO SCH ×2 (08:47→21:00)
[2020-03-30] MEDS: BUDESONIDE 180 MCG/INH INHALER [120] IH SCH ×2 (08:47→21:39)
[2020-03-30] MEDS: HydrALAZINE HCL 50 MG TABLET PO SCH ×2 (08:47→21:00)
[2020-03-30] MEDS: DEXAMETHASONE SOD PHOS 4 MG/ML VIAL IVP SCH (08:48)
[2020-03-30] MEDS: HEPARIN SODIUM,PORCINE 5,000 UNITS/ML VIAL SQ SCH ×2 (08:48→16:05)
[2020-03-30] MEDS: AmLODIPine BESYLATE 10 MG TABLET PO SCH (21:00)
[2020-03-30] MEDS: SIMVASTATIN 10 MG TABLET PO SCH (21:40)
[2020-03-30] MEDS: AZITHROMYCIN 500 MG/NS 250 ML IV SCH (22:22)
[2020-03-30] MEDS: ZOLPIDEM TARTRATE 5 MG TABLET PO PRN (22:22)
[2020-03-31] MEDS: CefTRIAXone 1 GM/DEXTROSE 50 ML IV SCH (00:11)
[2020-03-31] MEDS: HEPARIN SODIUM,PORCINE 5,000 UNITS/ML VIAL SQ SCH ×4 (00:12→23:59)
[2020-03-31] MEDS: ALBUTEROL SULFATE HFA 90 MCG/PUFF 8 GM INHALER IH SCH ×4 (02:00→20:27)
[2020-03-31] MEDS: IPRATROPIUM BROMIDE HFA 17 MCG/PUFF 12.9 GM INHALER IH SCH ×4 (02:00→20:27)
[2020-03-31 03:29] VITALS: BP 122/64
[2020-03-31 05:54] LABS: BASOPHILS % (AUTO) 0.2 % (0.0-2.0); EOSINOPHILS % (AUTO) 0.7 % (1.0-6.0); HEMATOCRIT 39.7 % (36-46); HEMOGLOBIN 13.2 g/dL (12.0-16.0); LYMPHOCYTES # (AUTO) 1.4 K/uL (1.0-4.8); LYMPHOCYTES % (AUTO) 17.3 % (22.0-44.0); MEAN CORPUSCULAR HEMOGLOBIN 29.4 pg (26.0-34.0); MEAN CORPUSCULAR HGB CONC 33.3 G/dL (31.0-37.0); MEAN CORPUSCULAR VOLUME 88 fL (80-100); MONOCYTES # (AUTO) 0.7 K/uL (0.1-1.0); MONOCYTES % (AUTO) 8.9 % (2.0-9.0); NEUTROPHILS # (AUTO) 5.8 K/uL (1.8-7.7); NEUTROPHILS % (AUTO) 72.9 % (40.0-70.0); PLATELET COUNT (AUTO) 231 K/uL (150-450); RED CELL DISTRIBUTION WIDTH 14.3 % (11.5-14.5)
[2020-03-31 05:56] LABS: ANION GAP 2 mmol/L (8-16); CALCIUM, TOTAL 8.6 mg/dL (8.8-10.5); CARBON DIOXIDE 36 mmol/L (22-29); CHLORIDE 103 mmol/L (98-107); GLOMERULAR FILTR. RATE CALC > 60 mL/min (>60); GLUCOSE,RANDOM 108 mg/dL (70-110); POTASSIUM 3.8 mmol/L (3.5-5.1); SODIUM SERUM 141 mmol/L (136-145); UREA NITROGEN, BLOOD 21 mg/dL (7-18)
[2020-03-31 07:48] VITALS: BP 102/44
[2020-03-31] MEDS: METOPROLOL TARTRATE 25 MG TABLET PO SCH ×2 (07:55→21:00)
[2020-03-31] MEDS: HydrALAZINE HCL 50 MG TABLET PO SCH ×2 (07:55→21:00)
[2020-03-31] MEDS: ZINC SULFATE 220 MG CAPSULE PO SCH (07:58)
[2020-03-31] MEDS: DEXAMETHASONE SOD PHOS 4 MG/ML VIAL IVP SCH (07:58)
[2020-03-31] MEDS: GuaiFENesin SR 600 MG ER TABLET PO SCH ×2 (07:58→21:53)
[2020-03-31] MEDS: MULTIVITAMINS, THERAPEUTIC TABLET PO SCH (07:58)
[2020-03-31] MEDS: DOCUSATE SODIUM 100 MG CAPSULE PO SCH ×2 (07:59→21:53)
[2020-03-31] MEDS: PANTOPRAZOLE SODIUM 40 MG DR TABLET PO SCH (07:59)
[2020-03-31] MEDS: BENZONATATE 100 MG CAPSULE PO SCH ×3 (07:59→21:53)
[2020-03-31] MEDS: ASCORBIC ACID 500 MG TABLET PO SCH ×2 (07:59→21:53)
[2020-03-31] MEDS: BUDESONIDE 180 MCG/INH INHALER [120] IH SCH ×2 (08:34→20:29)
[2020-03-31] MEDS: MICONAZOLE NITRATE 2% 142 GM CREAM [BAZA] TP SCH (08:51)
[2020-03-31 11:07] VITALS: BP 135/72
[2020-03-31 15:58] VITALS: BP 100/57
[2020-03-31 20:10] VITALS: BP 114/66
[2020-03-31] MEDS: SIMVASTATIN 10 MG TABLET PO SCH (21:53)
[2020-03-31] MEDS: AmLODIPine BESYLATE 10 MG TABLET PO SCH (21:53)
[2020-03-31] MEDS: ZOLPIDEM TARTRATE 5 MG TABLET PO PRN (21:54)
[2020-03-31 23:50] VITALS: BP 119/52
[2020-03-31] MEDS: AZITHROMYCIN 500 MG/NS 250 ML IV SCH (23:59)
[2020-04-01] VITALS: BP 119/52
[2020-04-01] MEDS: ALBUTEROL SULFATE HFA 90 MCG/PUFF 8 GM INHALER IH SCH ×3 (01:21→14:29)
[2020-04-01] MEDS: IPRATROPIUM BROMIDE HFA 17 MCG/PUFF 12.9 GM INHALER IH SCH ×3 (01:21→14:29)
[2020-04-01] MEDS: CefTRIAXone 1 GM/DEXTROSE 50 ML IV SCH (01:46)
[2020-04-01 04:44] VITALS: BP 110/70
[2020-04-01 08:00] VITALS: BP 114/53
[2020-04-01] MEDS: METOPROLOL TARTRATE 25 MG TABLET PO SCH (08:23)
[2020-04-01] MEDS: HydrALAZINE HCL 50 MG TABLET PO SCH (08:28)
[2020-04-01] MEDS: DEXAMETHASONE SOD PHOS 4 MG/ML VIAL IVP SCH (08:29)
[2020-04-01] MEDS: ASCORBIC ACID 500 MG TABLET PO SCH (08:30)
[2020-04-01] MEDS: MULTIVITAMINS, THERAPEUTIC TABLET PO SCH (08:30)
[2020-04-01] MEDS: ZINC SULFATE 220 MG CAPSULE PO SCH (08:30)
[2020-04-01] MEDS: GuaiFENesin SR 600 MG ER TABLET PO SCH (08:30)
[2020-04-01] MEDS: BENZONATATE 100 MG CAPSULE PO SCH ×2 (08:30→16:00)
[2020-04-01] MEDS: HEPARIN SODIUM,PORCINE 5,000 UNITS/ML VIAL SQ SCH ×2 (08:30→16:00)
[2020-04-01] MEDS: MICONAZOLE NITRATE 2% 142 GM CREAM [BAZA] TP SCH (08:31)
[2020-04-01] MEDS: DOCUSATE SODIUM 100 MG CAPSULE PO SCH (08:31)
[2020-04-01] MEDS: BUDESONIDE 180 MCG/INH INHALER [120] IH SCH (08:31)
[2020-04-01] MEDS: PANTOPRAZOLE SODIUM 40 MG DR TABLET PO SCH (08:31)
[2020-04-01 11:55] VITALS: BP 113/61
[2020-04-01] MEDS ORDERED: ALBU8HFA IH (12:02)
[2020-04-01] MEDS ORDERED: LEVO750T68 PO (12:02)
[2020-04-01 15:45] VITALS: BP 115/64
== END 2020-04-01 16:44 | disposition home health service (06) | DRG 177 ==
LOC: EMS 19:01 → 5N 21:00 → 5S 03-21 10:40
PROVIDERS: ADMIT Internal Medicine; ATTEND Internal Medicine
DX: U07.1 COVID-19 (principal); J12.89 Other viral pneumonia; J96.01 Acute respiratory failure with hypoxia; J45.901 Unspecified asthma with (acute) exacerbation; I69.351 Hemiplegia and hemiparesis following cerebral infarction affecting right dominant side; Z68.43 Body mass index [BMI] 50.0-59.9, adult; E78.5 Hyperlipidemia, unspecified; I10 Essential (primary) hypertension; E66.01 Morbid (severe) obesity due to excess calories; G47.33 Obstructive sleep apnea (adult) (pediatric); Z20.828 Contact with and (suspected) exposure to other viral communicable diseases; D72.810 Lymphocytopenia; R73.9 Hyperglycemia, unspecified; I69.398 Other sequelae of cerebral infarction; Z79.899 Other long term (current) drug therapy
CPT/HCPCS: 71250; 82728; 83605; 83615; 83735; 84100; 84145; 85379; 85651; 86140; 87040; 87205; 87426; 87804; 93005; 93308; 94640; 97110; 97163; 97166; 97530; 97535; 99291; J0456; J0696; J1100; J1644; J2930; J3535; J7050; 36415-L1; 36415-TC; 71045-TC; U0003-CS